=== PATIENT | male | born 1950 | race Caucasian/White ===

== ENCOUNTER 2018-10-15 08:22 | Day surgery (SDC) | payer OTHER ==
[~2018-10-15] VITALS: Ht 167.6 cm; Wt 86.2 kg
[2018-10-15 09:05] LABS: HEMATOCRIT 50.3 % (42.0-54.0); MCH 29.8 pg (26.0-34.0); MCHC 33.8 g/dL (31.0-37.0); MCV 88.1 fL (80.0-100.0); MEAN PLATELET VOLUME 9.6 fL (7.4-10.4); RBC 5.71 10x6/uL (4.20-6.10); RDW 14.7 % (11.5-14.5); WBC 4.8 10x3/uL (4.8-10.8)
[2018-10-15 09:13] LABS: ANION GAP 10.3 mmol/L (8-16); CALCIUM 9.7 mg/dL (8.5-10.1); CARBON DIOXIDE 31.3 mmol/L (21.0-32.0); CREATININE - SERUM 1.3 mg/dL (0.6-1.3); POTASSIUM - SERUM 4.6 mmol/L (3.5-5.1)
[2018-10-15] MEDS ORDERED: COZAAR100 MG PO (10:09)
[2018-10-15] MEDS ORDERED: CRESTOR10 MG PO (10:09)
[2018-10-15] MEDS ORDERED: GEMFIBROZIL600 MG PO (10:10)
[2018-10-15] MEDS ORDERED: TIMOPTIC 0.5 % O5 ML LEFT EYE (10:11)
[2018-10-15] MEDS ORDERED: NORVASC10 MG PO (10:11)
[2018-10-15] MEDS ORDERED: VITAMIN D250000 UNIT (10:11)
[2018-10-15] MEDS ORDERED: KLONOPIN0.5 MG PO (10:12)
[2018-10-15] MEDS ORDERED: CLARITIN 10 MG10 MG PO (10:13)
[2018-10-15 10:29] VITALS: BP 103/66; Ht 167.6 cm; Wt 86.2 kg
--- NOTE | 2018-10-15 15:45 | NUR ---
1535 FL DIET SERVED, HOB ELEVATED. AT SIDE. APPLE JUICE REFILLED.
--- NOTE | 2018-10-19 16:30 | OP ---
PATIENT NAME: LISSETTE BAILON MEDICAL RECORD: [id number] :50 LOCATION:[facility] ADMISSION DATE: SURGEON: DEREJE MAGDALENO MD DATE OF OPERATION: 10/15/2018 PREOPERATIVE DIAGNOSIS: Right chronic sinusitis. POSTOPERATIVE DIAGNOSIS: Right chronic sinusitis. PROCEDURES: Right maxillary antrostomy, right ethmoidectomy, right frontal sinusotomy. SURGEON: Dereje Magdaleno MD ANESTHESIA: General orotracheal. BLOOD LOSS: Less than 5 cc. SPECIMENS: Cultures from the right maxillary sinus. COMPLICATIONS: None. NASAL PACKING: None. DISPOSITION: Recovery stable. DESCRIPTION OF PROCEDURE: He was brought to the operating room and placed in supine position, sedated and intubated by anesthesia. He had been decongested with Afrin preoperatively. The table was turned 90 degrees. Head drapes were applied. He was prepped and draped in the usual sterile fashion. Using a 0-degree scope, his nose was examined. The left side was examined first. Inferior middle turbinate, nasal vault, and nasopharynx were all normal. Then, the right side was examined. The uncinate, middle turbinate, lateral nasal wall were injected with less than 0.5 cc of 1% lidocaine with 1:100,000 epinephrine. Afrin pledget was placed in the nasal vault, middle meatus, and along the inferior turbinate. Then, after waiting for decongestion, it was all removed. The nose was examined again with 0-degree scope. Inferior middle turbinate were normal. Nasal vault was normal. There was purulence in the middle meatus. The nasopharynx was normal as was the sphenoid recess. Then, the uncinate was fractured anteriorly with a ball tip probe and immediately very thick yellow purulence started to extrude. The uncinate was taken down and then with just some pressure on the lateral wall, copious purulence was extruding into the middle meatus. Three separate culture swabs were taken. Then, this was all suctioned out. The microdebrider was used to take down redundant granular swollen tissue around the maxillary ostia and a nice wide open 1 cm ostia was opened, kind of a [place] thickness kind of consistency material was also suctioned out and then the sinus was irrigated and fairly normal mucosa, a little granular erythematous appearance, but just slightly edematous with nice open sinus. No masses, polyps or cysts. Then the ethmoid cavity was entered inferomedially with the microdebrider. Again, copious similar purulence was encountered, some bone spicules from the ethmoid bulla were removed and cleaned up and then this was irrigated and then went through the grand lamella to the posterior sinuses and ethmoid sinuses and those were normal. This was then irrigated out to get a good clean view. Bone spicules were cleaned up with upbiting pediatric forceps to make a nice smooth open ethmoid cavity. Then, a OPERATIVE REPORT [id number] LISSETTE BAILON long smooth curved olive tip suction was inserted into the frontal duct all the way up into the sinus. It was irrigated repeatedly with 60 cc saline syringe and purulence was evacuated each time. This was done half a dozen times until it was completely clean. There was plenty of extra room to irrigate this without any pressure. The nasopharynx was suctioned and the entire field was again carefully examined with the 0 and 30-degree scope. Once this was all cleaned up, some mupirocin ointment was placed in the right maxillary sinus and ethmoid cavity. The pharynx was suctioned. The eyes were examined and normal. He was awakened, extubated, and transported to recovery in good condition. No complications. TRANSINT:[id number] Voice Confirmation ID: [id number] DOCUMENT ID: [id number] DEREJE MAGDALENO MD at 1630 CC: [id number] DICTATION DATE: 10/15/18 141 CONTROL OPERATOR FLOW COAT: 10/15/[address] [facility] 10/15/18 [facility] [address] [place] [address]
--- NOTE | 2018-10-19 16:30 | HP ---
PATIENT: ANTWON BAILON MEDICAL RECORD: [id number] ACCOUNT: [id number] LOCATION:[facility] : 50 ADMISSION DATE: 10/15/18 PCP: JNOI SOLIMAN MD HISTORY AND PHYSICAL EXAMINATION HISTORY OF PRESENT ILLNESS: Antwon is a 68-year-old male sent over by Dr. Soliman. He has a severe right-sided sinusitis, refractory to medical management. He is being admitted for sinus surgery. PAST MEDICAL HISTORY: Includes hypertension and reflux. PAST SURGICAL HISTORY: Includes surgery for broken leg in , partial colectomy in 2014, and appendectomy in 1963. CURRENT MEDICATIONS: Include pantoprazole, gemfibrozil, Crestor, omeprazole, amlodipine, losartan, clonazepam p.r.n., vitamin D, and Crestor. ALLERGIES: CODEINE. PHYSICAL EXAMINATION: GENERAL: Healthy-appearing. FACE: Normal, symmetric, no lesions. EYES: Sclerae and conjunctivae are normal. EARS: Canals and TMs are normal. NOSE: On endoscopy as purulence coming from the right middle meatus. ORAL CAVITY AND OROPHARYNX: Normal. NECK: Normal. CRANIAL NERVES: Normal. CHEST: Clear. CARDIOVASCULAR: Regular rate and rhythm, no murmur. EXTREMITIES: Normal. IMPRESSION: Right-sided sinusitis, refractory to medical management. PLAN: Right maxillary antrostomy, right anterior ethmoidectomy, and right frontal sinusotomy. TRANSINT:[id number] Voice Confirmation ID: [id number] DOCUMENT ID: [id number] KATHY MARRERO MD at 1630 CC: [id number] DICTATION DATE: 10/13/181814 FOUNDRY HAND: 10/13/181950 [facility] 10/15/18 [facility] [address] [place] [address]
== END 2018-10-15 16:35 | disposition home or self-care (01) ==
LOC: D.OPS 08:22 → D.PAN 10:30 → D.OPS 10:30
PROVIDERS: Anesthesiology; ATTEND Otolaryngology
DX: J32.0 Chronic maxillary sinusitis (principal); Z01.812 Encounter for preprocedural laboratory examination